=== PATIENT | female | born 1955 | race American Indian/Alaskan Native ===

== ENCOUNTER 2018-12-23 09:12 | Emergency (ER) | payer MEDICARE ==
[2018-12-23 09:22] VITALS: BP 158/84
[2018-12-23 10:03] LABS: Basophils % (Auto) 0.8 % (0.0-1.8); Eosinophils # (Auto) 0.1 K/mm3 (0.0-0.4); Eosinophils % (Auto) 1.7 % (0.0-4.3); Hematocrit 42.7 % (30.3-42.9); Lymphocytes % (Auto) 42.5 % (13.4-35.0); Mean Corpuscular HGB Conc 33 % (30-34); Mean Corpuscular Volume 76 fl (79-97); Monocytes # (Auto) 0.4 K/mm3 (0.0-0.8); Monocytes % (Auto) 8.5 % (0.0-7.3); Red Blood Count 5.62 M/mm3 (3.65-5.03); Red Cell Distribution Width 16.6 % (13.2-15.2)
[2018-12-23 10:25] LABS: BUN/Creatinine Ratio 12; Blood Urea Nitrogen 15 mg/dL (7-17); Calcium 10.3 mg/dL (8.4-10.2); Hemolysis Index 7
[2018-12-23 10:48] LABS: Bilirubin,Urine NEG (Negative); Blood,Urine NEG (Negative); Color,Urine Yellow (Yellow); Mucus,Urine FEW /HPF; Urobilinogen,Urine < 2.0 mg/dL (<2.0)
--- NOTE | 2018-12-23 10:59 | Emergency Department Report ---
- General Chief complaint: Nausea/Vomiting/Diarrhea Stated complaint: V/D FATIGUE Time Seen by Provider: 12/23/18 10:43 Source: patient Mode of arrival: Ambulatory Limitations: No Limitations - History of Present Illness Initial comments: Mrs. Archuleta is a 63 yo female who presents with fatigue for 2 weeks. Poor appetite. Has had dark stools for 3 days. Feels like it is just "old age". No chest or abdominal pain. No hx of smoking. +nausea MD Complaint: generalized weakness -: week(s) (2) Location: generalized Severity: mild Consistency: constant Improves with: none Worsens with: none Associated Symptoms: dark stools - Related Data Home Medications Medication Instructions Recorded Confirmed Last Taken Acetaminophen/Chlorpheniramine 2 each PO Q4H PRN 08/05/13 08/05/13 08/04/13 [Coricidin Hbp Cold & Flu] Aspirin [Ecotrin] 81 mg PO DAILY 08/05/13 08/05/13 08/04/13 Cholecalciferol (Vitamin D3) 1,000 unit PO DAILY 08/05/13 08/05/13 08/04/13 [Vitamin D3] Clopidogrel Bisulfate [Plavix] 75 mg PO DAILY 08/05/13 08/05/13 08/04/13 Losartan/Hydrochlorothiazide 1 each PO QDAY 08/05/13 08/05/13 08/04/13 [Hyzaar 100-12.5] Metoprolol [Lopressor] 25 mg PO BID 08/05/13 08/05/13 08/04/13 Pravastatin Sodium [Pravastatin] 20 mg PO QHS 08/05/13 08/05/13 08/04/13 Sodium Bicarbonate 650 mg PO TID 08/05/13 08/05/13 08/04/13 Triamter/Hctz 37.5-25 mg 1 tab PO QDAY 08/05/13 08/05/13 08/04/13 [Maxzide-25] amLODIPine [Norvasc] 10 mg PO DAILY 08/05/13 08/05/13 08/04/13 Previous Rx's Medication Instructions Recorded Last Taken Type ALBUTEROL Inhaler (OR & NICU) 1 puff IH Q4-6H PRN #1 inha 08/05/13 Unknown Rx [ProAir HFA Inhaler] guaiFENesin/CODEINE [Robitussin AC] 1 tsp PO Q4-6H PRN #75 ml 08/05/13 Unknown Rx Nitrofurantoin [place]/M-Cryst 100 mg PO Q12HR #10 capsule 12/19/13 Unknown Rx [Macrobid] Allergies Allergy/AdvReac Type Severity Reaction Status Date / Time lisinopril AdvReac Unknown Verified 12/23/18 09:22 ED Review of Systems ROS: Stated complaint: V/D FATIGUE Other details as noted in HPI Comment: All other systems reviewed and negative Constitutional: malaise Gastrointestinal: nausea ED Past Medical Hx - Past Medical History Previous Medical History?: Yes Hx Hypertension: Yes Additional medical history: kidney disease, high cholesterol, - Surgical History Past Surgical History?: Yes Additional Surgical History: feet - Social History Smoking Status: Never Smoker Substance Use Type: None - Medications Home Medications: Home Medications Medication Instructions Recorded Confirmed Last Taken Type ALBUTEROL Inhaler (OR & NICU) 1 puff IH Q4-6H PRN #1 inha 08/05/13 Unknown Rx [ProAir HFA Inhaler] Acetaminophen/Chlorpheniramine 2 each PO Q4H PRN 08/05/13 08/05/13 08/04/13 History [Coricidin Hbp Cold & Flu] Aspirin [Ecotrin] 81 mg PO DAILY 08/05/13 08/05/13 08/04/13 History Cholecalciferol (Vitamin D3) 1,000 unit PO DAILY 08/05/13 08/05/13 08/04/13 History [Vitamin D3] Clopidogrel Bisulfate [Plavix] 75 mg PO DAILY 08/05/13 08/05/13 08/04/13 History Losartan/Hydrochlorothiazide 1 each PO QDAY 08/05/13 08/05/13 08/04/13 History [Hyzaar 100-12.5] Metoprolol [Lopressor] 25 mg PO BID 08/05/13 08/05/13 08/04/13 History Pravastatin Sodium [Pravastatin] 20 mg PO QHS 08/05/13 08/05/13 08/04/13 History Sodium Bicarbonate 650 mg PO TID 08/05/13 08/05/13 08/04/13 History Triamter/Hctz 37.5-25 mg 1 tab PO QDAY 08/05/13 08/05/13 08/04/13 History [Maxzide-25] amLODIPine [Norvasc] 10 mg PO DAILY 08/05/13 08/05/13 08/04/13 History guaiFENesin/CODEINE [Robitussin AC] 1 tsp PO Q4-6H PRN #75 ml 08/05/13 Unknown Rx Nitrofurantoin [place]/M-Cryst 100 mg PO Q12HR #10 capsule 12/19/13 Unknown Rx [Macrobid] ED Physical Exam - General Limitations: No Limitations General appearance: alert, in no apparent distress - Head Head exam: Present: atraumatic, normocephalic - Eye Eye exam: Present: normal appearance - ENT ENT exam: Present: mucous membranes moist - Neck Neck exam: Present: normal inspection, full ROM - Respiratory Respiratory exam: Present: normal lung sounds bilaterally. Absent: respiratory distress, wheezes, rales, rhonchi - Cardiovascular Cardiovascular Exam: Present: regular rate, normal rhythm, normal heart sounds. Absent: systolic murmur, diastolic murmur, rubs, gallop - GI/Abdominal GI/Abdominal exam: Present: soft, normal bowel sounds. Absent: distended, tenderness, guarding, rebound - Extremities Exam Extremities exam: Present: normal inspection - Back Exam Back exam: Present: normal inspection - Neurological Exam Neurological exam: Present: alert, oriented X3 - Psychiatric Psychiatric exam: Present: normal affect, normal mood - Skin Skin exam: Present: warm, dry, intact, normal color. Absent: rash ED Course Vital Signs 12/23/18 09:20 Temperature 98.6 F Pulse Rate 108 H Respiratory 18 Rate Blood Pressure 158/84 O2 Sat by Pulse 99 Oximetry ED Medical Decision Making - Lab Data Result diagrams: 12/23/18 09:50 12/23/18 09:50 Laboratory Last Values WBC 4.6 K/mm3 (4.5-11.0) 12/23/18 09:50 RBC 5.62 M/mm3 (3.65-5.03) H 12/23/18 09:50 Hgb 14.0 gm/dl (10.1-14.3) 12/23/18 09:50 Hct 42.7 % (30.3-42.9) 12/23/18 09:50 MCV 76 fl (79-97) L 12/23/18 09:50 MCH 25 pg (28-32) L 12/23/18 09:50 MCHC 33 % (30-34) 12/23/18 09:50 RDW 16.6 % (13.2-15.2) H 12/23/18 09:50 Lymph % (Auto) 42.5 % (13.4-35.0) H 12/23/18 09:50 [place] % (Auto) 8.5 % (0.0-7.3) H 12/23/18 09:50 Eos % (Auto) 1.7 % (0.0-4.3) 12/23/18 09:50 Baso % (Auto) 0.8 % (0.0-1.8) 12/23/18 09:50 Lymph # 2.0 K/mm3 (1.2-5.4) 12/23/18 09:50 [place] # 0.4 K/mm3 (0.0-0.8) 12/23/18 09:50 Eos # 0.1 K/mm3 (0.0-0.4) 12/23/18 09:50 Baso # 0.0 K/mm3 (0.0-0.1) 12/23/18 09:50 Seg Neutrophils % 46.5 % (40.0-70.0) 12/23/18 09:50 Seg Neutrophils # 2.2 K/mm3 (1.8-7.7) 12/23/18 09:50 Sodium 140 mmol/L (137-145) 12/23/18 09:50 Potassium 4.6 mmol/L (3.6-5.0) 12/23/18 09:50 Chloride 106.5 mmol/L (98-107) 12/23/18 09:50 Carbon Dioxide 24 mmol/L (22-30) 12/23/18 09:50 14 mmol/L 12/23/18 09:50 BUN 15 mg/dL (7-17) 12/23/18 09:50 1.3 mg/dL (0.7-1.2) H 12/23/18 09:50 Estimated GFR 50 ml/min 12/23/18 09:50 12 % 12/23/18 09:50 Glucose 107 mg/dL (65-100) H 12/23/18 09:50 Calcium 10.3 mg/dL (8.4-10.2) H 12/23/18 09:50 < 0.010 ng/mL (0.00-0.029) 12/23/18 09:50 Yellow (Yellow) 12/23/18 Unknown Clear (Clear) 12/23/18 Unknown 5.0 (5.0-7.0) 12/23/18 Unknown Ur Specific [place] 1.020 (1.003-1.030) 12/23/18 Unknown 100 mg/dl mg/dL (Negative) 12/23/18 Unknown Neg mg/dL (Negative) 12/23/18 Unknown Neg mg/dL (Negative) 12/23/18 Unknown Neg (Negative) 12/23/18 Unknown Neg (Negative) 12/23/18 Unknown Neg (Negative) 12/23/18 Unknown < 2.0 mg/dL (<2.0) 12/23/18 Unknown Ur Leukocyte Esterase Tr (Negative) 12/23/18 Unknown 4.0 /HPF (0.0-6.0) 12/23/18 Unknown 1.0 /HPF (0.0-6.0) 12/23/18 Unknown U Epithel Cells (Auto) 2.0 /HPF (0-13.0) 12/23/18 Unknown Few /HPF 12/23/18 Unknown - Medical Decision Making Mrs. Archuleta presents with generalized weakness. No anemia. +microcytosis due iron or vitamin deficiency. recommended daily vitamin nausea DDx: PUD, IBS referred to PCP for further evaluation Critical care attestation.: If time is entered above; I have spent that time in minutes in the direct care of this critically ill patient, excluding procedure time. ED Disposition Clinical Impression: Weakness, Nausea Disposition: DC-01 TO HOME OR SELFCARE Is pt being admited?: No Does the pt Need Aspirin: No Condition: Stable Instructions: Acute Nausea and Vomiting (ED), Weakness (ED) Referrals: REMY STARK NP [Primary Care Provider] - 3-5 Days
[2018-12-23 12:03] LABS: Platelet Count 142 K/mm3 (140-440)
== END 2018-12-23 12:11 | disposition home or self-care (01) ==
LOC: ED 09:12
DX: R53.1 Weakness (principal); R11.0 Nausea; R63.0 Anorexia; K92.1 Melena; I10 Essential (primary) hypertension; E78.00 Pure hypercholesterolemia, unspecified; Z87.448 Personal history of other diseases of urinary system; Z79.899 Other long term (current) drug therapy; Z98.890 Other specified postprocedural states; Z88.8 Allergy status to other drugs, medicaments and biological substances
CPT/HCPCS: 36415; 80048; 81001; 84484; 85025

== ENCOUNTER 2019-07-20 16:09 | Emergency (ER) | payer MEDICARE ==
[2019-07-20 18:14] VITALS: BP 187/93
[2019-07-20] MEDS ORDERED: IBUPROFEN 600 MG TAB PO ONE (18:54)
[2019-07-20] MEDS ORDERED: BUTALB/ACETAMINOPHEN/CAFFEINE TAB PO ONE (18:54)
--- NOTE | 2019-07-20 19:49 | XRay Report ---
CHEST 2 VIEWS INDICATION / CLINICAL INFORMATION: Cough. Dizziness this morning. Stomach and head pain. COMPARISON: 08/05/2013. FINDINGS: SUPPORT DEVICES: None. HEART / MEDIASTINUM: The heart size is borderline with a left ventricular configuration. There is mil d aortic tortuosity without aneurysm. LUNGS / PLEURA: No significant pulmonary or pleural abnormality. No pneumothorax. ADDITIONAL FINDINGS: No significant additional findings. IMPRESSION: No acute abnormality or significant change. Signer Name: Pedro Luis Cox MD Signed: 07/20/2019 7:44 PM Workstation Name: [id number]
[2019-07-20 19:50] LABS: Bilirubin,Urine NEG (Negative); Blood,Urine NEG (Negative); Color,Urine Straw (Yellow); Urobilinogen,Urine < 2.0 mg/dL (<2.0); WBC,Urine < 1.0 /HPF (0.0-6.0)
[2019-07-20 19:56] LABS: Albumin 4.1 g/dL (3.9-5); Calcium 9.8 mg/dL (8.4-10.2)
[2019-07-20 20:16] LABS: Basophils # (Auto) 0.1 K/mm3 (0.0-0.1); Basophils % (Auto) 0.9 % (0.0-1.8); Eosinophils # (Auto) 0.1 K/mm3 (0.0-0.4); Eosinophils % (Auto) 1.1 % (0.0-4.3); Hematocrit 42.5 % (30.3-42.9); Lymphocytes # (Auto) 2.8 K/mm3 (1.2-5.4); Lymphocytes % (Auto) 41.7 % (13.4-35.0); Mean Corpuscular HGB Conc 33 % (30-34); Mean Corpuscular Volume 74 fl (79-97); Monocytes # (Auto) 0.5 K/mm3 (0.0-0.8); Monocytes % (Auto) 7.8 % (0.0-7.3); Red Blood Count 5.74 M/mm3 (3.65-5.03); Red Cell Distribution Width 16.4 % (13.2-15.2)
[2019-07-20 21:04] LABS: Platelet Count 155 K/mm3 (140-440)
--- NOTE | 2019-07-20 22:28 | Emergency Department Report ---
ED General Adult HPI - General Chief complaint: Headache Stated complaint: HEAD, STOMACH Source: patient Mode of arrival: Ambulatory Limitations: No Limitations - History of Present Illness Initial comments: Patient is a 64 year-old female who presented to the ED with Dev[place] of acute onset persistent nasal and sinus congestion, frontal sinus pressure and headache for the last 2 days worse in the last 12 hours. Patient states that the headache resolved prior to arrival in the ED prior to that it was worse. Patient denies fever, chills, nausea, vomiting, chest pain, shortness of breath, dizziness, syncope, palpitation, sore throat, traumatic injury or fall. MD Complaint: Diffuse body aches and pain; headache, dry cough -: Sudden, days(s) (2) Location: head, chest Radiation: non-radiation Severity scale (0 -10): 0 Quality: dull Consistency: intermittent Improves with: none Worsens with: none Associated Symptoms: denies other symptoms, cough, headaches, loss of appetite. denies: confusion, chest pain, diaphoresis, fever/chills, malaise, nausea/vomiting, rash, seizure, shortness of breath, syncope, weakness, other Treatments Prior to Arrival: none - Related Data Home Medications Medication Instructions Recorded Confirmed Last Taken Acetaminophen/Chlorpheniramine 2 each PO Q4H PRN 08/05/13 08/05/13 08/04/13 [Coricidin Hbp Cold & Flu] Aspirin [Ecotrin] 81 mg PO DAILY 08/05/13 08/05/13 08/04/13 Cholecalciferol (Vitamin D3) 1,000 unit PO DAILY 08/05/13 08/05/13 08/04/13 [Vitamin D3] Clopidogrel Bisulfate [Plavix] 75 mg PO DAILY 08/05/13 08/05/13 08/04/13 Losartan/Hydrochlorothiazide 1 each PO QDAY 08/05/13 08/05/13 08/04/13 [Hyzaar 100-12.5] Metoprolol [Lopressor] 25 mg PO BID 08/05/13 08/05/13 08/04/13 Pravastatin Sodium [Pravastatin] 20 mg PO QHS 08/05/13 08/05/13 08/04/13 Sodium Bicarbonate 650 mg PO TID 08/05/13 08/05/13 08/04/13 Triamter/Hctz 37.5-25 mg 1 tab PO QDAY 08/05/13 08/05/13 08/04/13 [Maxzide-25] amLODIPine [Norvasc] 10 mg PO DAILY 08/05/13 08/05/13 08/04/13 Previous Rx's Medication Instructions Recorded Last Taken Type Albuterol INH(or & Nicu Only) 1 puff IH Q4-6H PRN #1 inha 08/05/13 Unknown Rx [ProAir HFA Inhaler] guaiFENesin/CODEINE [Robitussin AC] 1 tsp PO Q4-6H PRN #75 ml 08/05/13 Unknown Rx Nitrofurantoin [place]/M-Cryst 100 mg PO Q12HR #10 capsule 12/19/13 Unknown Rx [Macrobid] Azithromycin [Zithromax TAB] 250 mg PO QDAY #6 tablet 07/20/19 Unknown Rx Butalb/Acetamin/Caff 50-325-40 1 - 2 tab PO Q6HR PRN #12 tab 07/20/19 Unknown Rx [Fioricet 50-325-40] Cetirizine HCl [Zyrtec 10mg tab] 10 mg PO DAILY #20 tablet 07/20/19 Unknown Rx Allergies Allergy/AdvReac Type Severity Reaction Status Date / Time lisinopril AdvReac Unknown Verified 07/20/19 16:11 ED Review of Systems ROS: Stated complaint: HEAD, STOMACH Other details as noted in HPI Constitutional: denies: chills, fever Eyes: denies: eye pain, eye discharge, vision change ENT: congestion. denies: ear pain, throat pain Respiratory: cough. denies: shortness of breath, wheezing Cardiovascular: denies: chest pain, palpitations Endocrine: no symptoms reported Gastrointestinal: denies: abdominal pain, nausea, diarrhea Genitourinary: denies: urgency, dysuria, discharge Musculoskeletal: denies: back pain, joint swelling, arthralgia Skin: denies: rash, lesions Neurological: headache (frontal headache). denies: weakness, paresthesias Psychiatric: denies: anxiety, depression Hematological/Lymphatic: denies: easy bleeding, easy bruising ED Past Medical Hx - Past Medical History Hx Hypertension: Yes Additional medical history: kidney disease, high cholesterol, - Surgical History Additional Surgical History: feet - Social History Smoking Status: Former Smoker Substance Use Type: None - Medications Home Medications: Home Medications Medication Instructions Recorded Confirmed Last Taken Type Acetaminophen/Chlorpheniramine 2 each PO Q4H PRN 08/05/13 08/05/13 08/04/13 History [Coricidin Hbp Cold & Flu] Albuterol INH(or & Nicu Only) 1 puff IH Q4-6H PRN #1 inha 08/05/13 Unknown Rx [ProAir HFA Inhaler] Aspirin [Ecotrin] 81 mg PO DAILY 08/05/13 08/05/13 08/04/13 History Cholecalciferol (Vitamin D3) 1,000 unit PO DAILY 08/05/13 08/05/13 08/04/13 History [Vitamin D3] Clopidogrel Bisulfate [Plavix] 75 mg PO DAILY 08/05/13 08/05/13 08/04/13 History Losartan/Hydrochlorothiazide 1 each PO QDAY 08/05/13 08/05/13 08/04/13 History [Hyzaar 100-12.5] Metoprolol [Lopressor] 25 mg PO BID 08/05/13 08/05/13 08/04/13 History Pravastatin Sodium [Pravastatin] 20 mg PO QHS 08/05/13 08/05/13 08/04/13 History Sodium Bicarbonate 650 mg PO TID 08/05/13 08/05/13 08/04/13 History Triamter/Hctz 37.5-25 mg 1 tab PO QDAY 08/05/13 08/05/13 08/04/13 History [Maxzide-25] amLODIPine [Norvasc] 10 mg PO DAILY 08/05/13 08/05/13 08/04/13 History guaiFENesin/CODEINE [Robitussin AC] 1 tsp PO Q4-6H PRN #75 ml 08/05/13 Unknown Rx Nitrofurantoin [place]/M-Cryst 100 mg PO Q12HR #10 capsule 12/19/13 Unknown Rx [Macrobid] Azithromycin [Zithromax TAB] 250 mg PO QDAY #6 tablet 07/20/19 Unknown Rx Butalb/Acetamin/Caff 50-325-40 1 - 2 tab PO Q6HR PRN #12 tab 07/20/19 Unknown Rx [Fioricet 50-325-40] Cetirizine HCl [Zyrtec 10mg tab] 10 mg PO DAILY #20 tablet 07/20/19 Unknown Rx ED Physical Exam - General Limitations: No Limitations General appearance: alert, in no apparent distress - Head Head exam: Present: atraumatic, normocephalic, normal inspection - Eye Eye exam: Present: normal appearance, PERRL, EOMI Pupils: Present: normal accommodation - ENT ENT exam: Present: normal orophraynx, mucous membranes moist, TM's normal bilaterally, normal external ear exam, other (grossly congested nasal passages, frontal sinus tenderness to palpation) - Neck Neck exam: Present: normal inspection, full ROM. Absent: tenderness - Respiratory Respiratory exam: Present: normal lung sounds bilaterally. Absent: respiratory distress, wheezes, rales, chest wall tenderness, accessory muscle use, decreased breath sounds, prolonged expiratory - Cardiovascular Cardiovascular Exam: Present: regular rate, normal rhythm, normal heart sounds. Absent: systolic murmur, diastolic murmur, rubs, gallop - GI/Abdominal GI/Abdominal exam: Present: soft, normal bowel sounds. Absent: tenderness, rebound, hyperactive bowel sounds, hypoactive bowel sounds - Extremities Exam Extremities exam: Present: normal inspection, full ROM, normal capillary refill - Back Exam Back exam: Present: normal inspection, full ROM. Absent: tenderness, muscle spasm, paraspinal tenderness - Neurological Exam Neurological exam: Present: alert, oriented X3, CN II-XII intact, normal gait, reflexes normal - Psychiatric Psychiatric exam: Present: normal affect, normal mood - Skin Skin exam: Present: warm, dry, intact, normal color. Absent: rash ED Course Vital Signs 07/20/19 07/20/19 16:20 18:47 Temperature 98.0 F Pulse Rate 87 Respiratory 18 18 Rate Blood Pressure 187/93 Blood Pressure 132/76 [Right] O2 Sat by Pulse 96 Oximetry ED Medical Decision Making - Lab Data Result diagrams: 07/20/19 19:58 07/20/19 16:22 - Radiology Data Radiology results: report reviewed, image reviewed - Medical Decision Making This is a 64-year-old female who presented to the ED with frontal sinus pressure and headache, nasal and sinus congestion, dry cough for 2 days. In the ED, patient is alert and oriented 3 and is not in distress with normal vital signs. Lab test results were all reviewed and are nonactionable including urinalysis. Chest x-ray shows no acute cardiopulmonary abnormalities or pneumonitis. Patient did not have any headache while in the ED and therefore was not treated for any pain or given any medications. Patient was discharged home on medications and advised to follow-up with her primary care physician in 5-7 days for reevaluation or return to the ED immediately if symptoms get worse. - Differential Diagnosis sinusitis; pneumonia; URI; Bronchitis Critical care attestation.: If time is entered above; I have spent that time in minutes in the direct care of this critically ill patient, excluding procedure time. ED Disposition Clinical Impression: Acute upper respiratory infection, Sinus headache, Flu-like symptoms Acute frontal sinusitis Qualifiers: Recurrence: non-recurrent Qualified Code(s): J01.10 - Acute frontal sinusitis, unspecified Disposition: TO HOME OR SELFCARE Is pt being admited?: No Does the pt Need Aspirin: No Condition: Stable Instructions: Sinusitis (ED), Acute Headache (ED) Additional Instructions: Take medication with food, drink plenty of fluids and follow up with your primary care physician in 5-7 days for reevaluation. Return to the ED immediately if symptoms get worse. Prescriptions: Butalb/Acetamin/Caff 50-325-40 [Fioricet 50-325-40] 1 - 2 tab PO Q6HR PRN #12 tab PRN Reason: Headache Azithromycin [Zithromax TAB] 250 mg PO QDAY #6 tablet Cetirizine HCl [Zyrtec 10mg tab] 10 mg PO DAILY #20 tablet Referrals: GREGORIO DURAN MD [Staff Physician] - 3-5 Days Time of Disposition: 22:27 Print Language: OCCITAN
== END 2019-07-20 22:35 | disposition home or self-care (01) ==
LOC: ED 16:09
DX: J01.10 Acute frontal sinusitis, unspecified (principal); I10 Essential (primary) hypertension; Z87.891 Personal history of nicotine dependence; Z79.899 Other long term (current) drug therapy; Z88.8 Allergy status to other drugs, medicaments and biological substances
CPT/HCPCS: 36415; 71046; 80053; 81001; 85025; 87400

== ENCOUNTER 2020-07-14 16:07 | Emergency (ER) | payer MEDICARE ==
[2020-07-14 16:18] VITALS: BP 181/92
--- NOTE | 2020-07-14 16:23 | Emergency Department Report ---
ED Neck Pain/Injury HPI - General Chief Complaint: Neck Pain/Injury Stated Complaint: NECK PAIN Mode of arrival: Ambulatory Limitations: No Limitations - History of Present Illness Initial Comments: 65-year-old -Congolese male female presents to the emergency room for a 2- day history of intermittent neck pain that is sharp. Patient denies any pain at this time. Patient reports that her daughter is at home tested positive for Covid. Patient states her last Covid test was Wednesday of last week and it was negative. Patient was noted to have a low-grade fever 100.2. Mild tachycardic at 101. Patient is taking nothing for her symptoms. Patient has a past medical history of hypertension and reports she is on 5 different blood pressure medications. Patient states that she is compliant with her medicines. Patient denies any injuries. MD Complaint: neck pain Onset/Timin -: days(s) Severity scale (0 -10): 0 Associated Symptoms: none Treatments Prior to Arrival: none - Related Data Home Medications Medication Instructions Recorded Confirmed Last Taken Acetaminophen/Chlorpheniramine 2 each PO Q4H PRN 08/05/13 08/05/13 08/04/13 [Coricidin Hbp Cold & Flu] Aspirin [Ecotrin] 81 mg PO DAILY 08/05/13 08/05/13 08/04/13 Cholecalciferol (Vitamin D3) 1,000 unit PO DAILY 08/05/13 08/05/13 08/04/13 [Vitamin D3] Clopidogrel Bisulfate [Plavix] 75 mg PO DAILY 08/05/13 08/05/13 08/04/13 Losartan/Hydrochlorothiazide 1 each PO QDAY 08/05/13 08/05/13 08/04/13 [Hyzaar 100-12.5] Metoprolol [Lopressor] 25 mg PO BID 08/05/13 08/05/13 08/04/13 Pravastatin Sodium [Pravastatin] 20 mg PO QHS 08/05/13 08/05/13 08/04/13 Sodium Bicarbonate 650 mg PO TID 08/05/13 08/05/13 08/04/13 Triamter/Hctz 37.5-25 mg 1 tab PO QDAY 08/05/13 08/05/13 08/04/13 [Maxzide-25] amLODIPine [Norvasc] 10 mg PO DAILY 08/05/13 08/05/13 08/04/13 Previous Rx's Medication Instructions Recorded Last Taken Type Albuterol Mdi (or & Nicu Only) 1 puff IH Q4-6H PRN #1 inha 08/05/13 Unknown Rx [ProAir HFA Inhaler] guaiFENesin/CODEINE [Robitussin AC] 1 tsp PO Q4-6H PRN #75 ml 08/05/13 Unknown Rx Nitrofurantoin [place]/M-Cryst 100 mg PO Q12HR #10 capsule 12/19/13 Unknown Rx [Macrobid] Azithromycin [Zithromax TAB] 250 mg PO QDAY #6 tablet 07/20/19 Unknown Rx Butalb/Acetamin/Caff 50-325-40 1 - 2 tab PO Q6HR PRN #12 tab 07/20/19 Unknown Rx [Fioricet 50-325-40] Cetirizine HCl [Zyrtec 10mg tab] 10 mg PO DAILY #20 tablet 07/20/19 Unknown Rx Allergies Allergy/AdvReac Type Severity Reaction Status Date / Time lisinopril AdvReac Unknown Verified 07/20/19 16:11 ED Review of Systems ROS: Stated complaint: NECK PAIN Other details as noted in HPI Comment: All other systems reviewed and negative ED Past Medical Hx - Past Medical History Previous Medical History?: Yes Hx Hypertension: Yes Additional medical history: kidney disease, high cholesterol, - Surgical History Past Surgical History?: Yes Additional Surgical History: feet - Social History Smoking Status: Never Smoker Substance Use Type: None - Medications Home Medications: Home Medications Medication Instructions Recorded Confirmed Last Taken Type Acetaminophen/Chlorpheniramine 2 each PO Q4H PRN 08/05/13 08/05/13 08/04/13 History [Coricidin Hbp Cold & Flu] Albuterol Mdi (or & Nicu Only) 1 puff IH Q4-6H PRN #1 inha 08/05/13 Unknown Rx [ProAir HFA Inhaler] Aspirin [Ecotrin] 81 mg PO DAILY 08/05/13 08/05/13 08/04/13 History Cholecalciferol (Vitamin D3) 1,000 unit PO DAILY 08/05/13 08/05/13 08/04/13 History [Vitamin D3] Clopidogrel Bisulfate [Plavix] 75 mg PO DAILY 08/05/13 08/05/1308/04/14 History Losartan/Hydrochlorothiazide 1 each PO QDAY 08/05/13 08/05/13 08/04/13 History [Hyzaar 100-12.5] Metoprolol [Lopressor] 25 mg PO BID 08/05/13 08/05/13 08/04/13 History Pravastatin Sodium [Pravastatin] 20 mg PO QHS 08/05/13 08/05/13 08/04/13 History Sodium Bicarbonate 650 mg PO TID 08/05/13 08/05/13 08/04/13 History Triamter/Hctz 37.5-25 mg 1 tab PO QDAY 08/05/13 08/05/13 08/04/13 History [Maxzide-25] amLODIPine [Norvasc] 10 mg PO DAILY 08/05/13 08/05/13 08/04/13 History guaiFENesin/CODEINE [Robitussin AC] 1 tsp PO Q4-6H PRN #75 ml 08/05/13 Unknown Rx Nitrofurantoin [place]/M-Cryst 100 mg PO Q12HR #10 capsule 12/19/13 Unknown Rx [Macrobid] Azithromycin [Zithromax TAB] 250 mg PO QDAY #6 tablet 07/20/19 Unknown Rx Butalb/Acetamin/Caff 50-325-40 1 - 2 tab PO Q6HR PRN #12 tab 07/20/19 Unknown Rx [Fioricet 50-325-40] Cetirizine HCl [Zyrtec 10mg tab] 10 mg PO DAILY #20 tablet 07/20/19 Unknown Rx ED Physical Exam - General Limitations: No Limitations General appearance: alert, in no apparent distress - Head Head exam: Present: atraumatic, normocephalic - Eye Eye exam: Present: normal appearance - ENT ENT exam: Present: mucous membranes moist - Neck Neck exam: Present: normal inspection - Respiratory Respiratory exam: Present: normal lung sounds bilaterally. Absent: respiratory distress - Cardiovascular Cardiovascular Exam: Present: regular rate, normal rhythm. Absent: systolic murmur, diastolic murmur, rubs, gallop - GI/Abdominal GI/Abdominal exam: Present: soft, normal bowel sounds - Extremities Exam Extremities exam: Present: normal inspection - Back Exam Back exam: Present: normal inspection - Neurological Exam Neurological exam: Present: alert, oriented X3 - Psychiatric Psychiatric exam: Present: normal affect, normal mood - Skin Skin exam: Present: warm, dry, intact, normal color. Absent: rash ED Course Vital Signs 07/14/20 16:15 Temperature 100.2 F H Pulse Rate 107 H Respiratory 20 Rate Blood Pressure 181/92 O2 Sat by Pulse 98 Oximetry ED Medical Decision Making - Medical Decision Making 65-year-old -Congolese male female presents to the emergency room for a 2- day history of intermittent neck pain that is sharp. Patient denies any pain at this time. Patient reports that her daughter is at home tested positive for Covid. Patient states her last Covid test was Wednesday of last week and it was negative. Patient was noted to have a low-grade fever 100.2. Mild tachycardic at 101. Patient is taking nothing for her symptoms. Patient has a past medical history of hypertension and reports she is on 5 different blood pressure medications. Patient states that she is compliant with her medicines. Patient denies any injuries. Discussed with patient she needs to follow-up with your primary care provider. Take Tylenol or ibuprofen for fever and pain. She needs to be retested for Covid. Staying quarantine until she has been tested. Increase her fluid intake. Critical care attestation.: If time is entered above; I have spent that time in minutes in the direct care of this critically ill patient, excluding procedure time. ED Disposition Clinical Impression: Viral syndrome, Suspected 2019 novel coronavirus infection Disposition: DC-01 TO HOME OR SELFCARE Is pt being admited?: No Does the pt Need Aspirin: No Condition: Stable Instructions: Viral Respiratory Infection, [id number] Additional Instructions: Your symptoms appear most consistent with a nonspecific viral syndrome. However, given this current pandemic, COVID-19 is in the differential of possibilities. Despite your previous negative COVID-19 test, I do recommend repeat outpatient Covid 19 testing. In the meantime, isolate/quarantine yourself and stay away from anyone who is elderly, immunocompromised or chronically ill. You can use ibuprofen every 6-8 hours and Tylenol every 4-8 hours, using the dosing on the back of the bottle, as needed for any fever or body aches. Return to the emergency department with any worsening of your symptoms, development of chest pain or shortness of breath, or with any acute distress. Recommend Tylenol ibuprofen for pain and fever. Follow-up with your primary care provider. Very important to get retested for Covid. Please quarantine away away from your daughter. Referrals: KASEY HUSTON NP-C [Referring] - 3-5 Days
== END 2020-07-14 16:26 | disposition home or self-care (01) ==
LOC: ED 16:07
DX: B34.9 Viral infection, unspecified (principal); I10 Essential (primary) hypertension; Z20.828 Contact with and (suspected) exposure to other viral communicable diseases; Z79.899 Other long term (current) drug therapy
CPT/HCPCS: 99282

== ENCOUNTER 2021-04-08 15:02 | Outpatient (CLI) | payer MEDICARE ==
--- NOTE | 2021-04-08 16:31 | XRay Report ---
XR chest routine 2V INDICATION / CLINICAL INFORMATION: SHORTNESS OF BREATH. COMPARISON: 07/20/2019 FINDINGS: SUPPORT DEVICES: Left-sided cardiac pacemaker with leads projecting in the region of the right atrium and right ventricle. HEART /PULMONARY VASCULATURE: Cardiac silhouette is mildly enlarged. No significant pulmonary vascula ture congestion. LUNGS / PLEURA: No acute airspace consolidation or effusion. No pneumothorax. ADDITIONAL FINDINGS: No significant additional findings. IMPRESSION: 1. No acute findings. Signer Name: Marcos Burgos MD Signed: 04/08/2021 4:27 PM Workstation Name: [id number]
--- NOTE | 2021-04-08 16:37 | Nuclear Medicine Report ---
NUCLEAR MEDICINE PERFUSION LUNG SCAN INDICATION / CLINICAL INFORMATION: Dyspnea on exertion, history of PE in October 2020. Patient reports running out of prescribed blood thinn ers. TECHNIQUE: 5.1 mCi of Tc-99m MAA were given by IV. COMPARISON: 2 views of the chest performed today. FINDINGS: PERFUSION: No significant perfusion defects. ADDITIONAL FINDINGS: None. IMPRESSION: 1. Low probability for pulmonary embolism. Signer Name: Jimmy Alonzo MD Signed: 04/08/2021 4:32 PM Workstation Name: [id number]
== END 2021-04-08 15:03 | disposition home or self-care (01) ==
LOC: NM 15:02
PROVIDERS: ATTEND Internal Medicine Cardiovascular Disease
DX: I51.7 Cardiomegaly (principal); R06.02 Shortness of breath; Z86.711 Personal history of pulmonary embolism
CPT/HCPCS: 71046; 78580; A9540

== ENCOUNTER 2021-08-07 11:36 | Emergency (ER) | payer MEDICARE ==
--- NOTE | 2021-08-07 13:00 | Emergency Department Report ---
ED Female HPI - General Chief complaint: Urogenital-Female Stated complaint: URINARY TRACT INFECTION Time Seen by Provider: 08/07/21 12:36 Source: patient Mode of arrival: Ambulatory Limitations: No Limitations - History of Present Illness Initial comments: 66-year-old -Armenian female presents to the emergency room complaining of dysuria urinary urgency urinary frequency hematuria pelvic pain and pressure and urinary retention that started today. She denies any fever no chills no nausea no vomiting. She does report a history of hypertension and stage IV kidney disease MD Complaint: dysuria - Related Data Home Medications Medication Instructions Recorded Confirmed Last Taken Acetaminophen/Chlorpheniramine 2 each PO Q4H PRN 08/05/13 08/05/13 08/04/13 [Coricidin Hbp Cold & Flu] Aspirin [Ecotrin] 81 mg PO DAILY 08/05/13 08/05/13 08/04/13 Cholecalciferol (Vitamin D3) 1,000 unit PO DAILY 08/05/13 08/05/13 08/04/13 [Vitamin D3] Clopidogrel Bisulfate [Plavix] 75 mg PO DAILY 08/05/13 08/05/13 08/04/13 Losartan/Hydrochlorothiazide 1 each PO QDAY 08/05/13 08/05/13 08/04/13 [Hyzaar 100-12.5] Metoprolol [Lopressor] 25 mg PO BID 08/05/13 08/05/13 08/04/13 Pravastatin Sodium [Pravastatin] 20 mg PO QHS 08/05/13 08/05/13 08/04/13 Sodium Bicarbonate 650 mg PO TID 08/05/13 08/05/13 08/04/13 Triamter/Hctz 37.5-25 mg 1 tab PO QDAY 08/05/13 08/05/13 08/04/13 [Maxzide-25] amLODIPine [Norvasc] 10 mg PO DAILY 08/05/13 08/05/13 08/04/13 Previous Rx's Medication Instructions Recorded Last Taken Type Albuterol Mdi (or & Nicu Only) 1 puff IH Q4-6H PRN #1 inha 08/05/13 Unknown Rx [ProAir HFA Inhaler] guaiFENesin/CODEINE [Robitussin AC] 1 tsp PO Q4-6H PRN #75 ml 08/05/13 Unknown Rx Nitrofurantoin [place]/M-Cryst 100 mg PO Q12HR #10 capsule 12/19/13 Unknown Rx [Macrobid] Azithromycin [Zithromax TAB] 250 mg PO QDAY #6 tablet 07/20/19 Unknown Rx Butalb/Acetamin/Caff 50-325-40 1 - 2 tab PO Q6HR PRN #12 tab 07/20/19 Unknown Rx [Fioricet 50-325-40] Cetirizine HCl [Zyrtec 10mg tab] 10 mg PO DAILY #20 tablet 07/20/19 Unknown Rx Nitrofurantoin [place]/M-Cryst 100 mg PO Q12HR 7 Days #14 capsule 08/07/21 Unknown Rx [Macrobid CAP] Phenazopyridine [Pyridium] 100 mg PO TID #9 tab 08/07/21 Unknown Rx Allergies Allergy/AdvReac Type Severity Reaction Status Date / Time lisinopril AdvReac Unknown Verified 07/20/19 16:11 ED Review of Systems ROS: Stated complaint: URINARY TRACT INFECTION Other details as noted in HPI Comment: All other systems reviewed and negative ED Past Medical Hx - Past Medical History Hx Hypertension: Yes Additional medical history: kidney disease, high cholesterol, - Surgical History Additional Surgical History: feet - Social History Smoking Status: Never Smoker Substance Use Type: None - Medications Home Medications: Home Medications Medication Instructions Recorded Confirmed Last Taken Type Acetaminophen/Chlorpheniramine 2 each PO Q4H PRN 08/05/13 08/05/13 08/04/13 History [Coricidin Hbp Cold & Flu] Albuterol Mdi (or & Nicu Only) 1 puff IH Q4-6H PRN #1 inha 08/05/13 Unknown Rx [ProAir HFA Inhaler] Aspirin [Ecotrin] 81 mg PO DAILY 08/05/13 08/05/13 08/04/13 History Cholecalciferol (Vitamin D3) 1,000 unit PO DAILY 08/05/13 08/05/13 08/04/13 History [Vitamin D3] Clopidogrel Bisulfate [Plavix] 75 mg PO DAILY 08/05/13 08/05/13 08/04/13 History Losartan/Hydrochlorothiazide 1 each PO QDAY 08/05/13 08/05/13 08/04/13 History [Hyzaar 100-12.5] Metoprolol [Lopressor] 25 mg PO BID 08/05/13 08/05/13 08/04/13 History Pravastatin Sodium [Pravastatin] 20 mg PO QHS 08/05/13 08/05/13 08/04/13 History Sodium Bicarbonate 650 mg PO TID 08/05/13 08/05/13 08/04/13 History Triamter/Hctz 37.5-25 mg 1 tab PO QDAY 08/05/13 08/05/13 08/04/13 History [Maxzide-25] amLODIPine [Norvasc] 10 mg PO DAILY 08/05/13 08/05/13 08/04/13 History guaiFENesin/CODEINE [Robitussin AC] 1 tsp PO Q4-6H PRN #75 ml 08/05/13 Unknown Rx Nitrofurantoin [place]/M-Cryst 100 mg PO Q12HR #10 capsule 12/19/13 Unknown Rx [Macrobid] Azithromycin [Zithromax TAB] 250 mg PO QDAY #6 tablet 07/20/19 Unknown Rx Butalb/Acetamin/Caff 50-325-40 1 - 2 tab PO Q6HR PRN #12 tab 07/20/19 Unknown Rx [Fioricet 50-325-40] Cetirizine HCl [Zyrtec 10mg tab] 10 mg PO DAILY #20 tablet 07/20/19 Unknown Rx Nitrofurantoin [place]/M-Cryst 100 mg PO Q12HR 7 Days #14 capsule 08/07/21 Unknown Rx [Macrobid CAP] Phenazopyridine [Pyridium] 100 mg PO TID #9 tab 08/07/21 Unknown Rx ED Physical Exam - General Limitations: No Limitations General appearance: alert, in no apparent distress - Head Head exam: Present: atraumatic, normocephalic - Eye Eye exam: Present: normal appearance - ENT ENT exam: Present: mucous membranes moist - Neck Neck exam: Present: normal inspection - Respiratory Respiratory exam: Present: normal lung sounds bilaterally. Absent: respiratory distress - Cardiovascular Cardiovascular Exam: Present: regular rate, normal rhythm. Absent: systolic murmur, diastolic murmur, rubs, gallop - GI/Abdominal GI/Abdominal exam: Present: soft, normal bowel sounds - Extremities Exam Extremities exam: Present: normal inspection - Back Exam Back exam: Present: normal inspection - Neurological Exam Neurological exam: Present: alert, oriented X3 - Psychiatric Psychiatric exam: Present: normal affect, normal mood - Skin Skin exam: Present: warm, dry, intact, normal color. Absent: rash ED Course Vital Signs 08/07/21 12:20 Temperature 98.9 F Pulse Rate 83 Respiratory 18 Rate Blood Pressure 142/85 [Right] O2 Sat by Pulse 99 Oximetry ED Medical Decision Making - Medical Decision Making 66-year-old -Armenian female presents to the emergency room complaining of dysuria urinary urgency urinary frequency hematuria pelvic pain and pressure and urinary retention that started today. She denies any fever no chills no nausea no vomiting. She does report a history of hypertension and stage IV kidney disease Patient has a urinary tract infection we will treat her with Macrobid 100 mg p.o. twice daily for 10 days give her 3 days of Pyridium to take 3 times a day Critical care attestation.: If time is entered above; I have spent that time in minutes in the direct care of this critically ill patient, excluding procedure time. ED Disposition Clinical Impression: UTI (urinary tract infection) Disposition: HOME / SELF CARE / HOMELESS Is pt being admited?: No Does the pt Need Aspirin: No Condition: Stable Instructions: Urinary Tract Infection, Adult, [id number] Additional Instructions: Complete your antibiotics as prescribed take your Pyridium as needed for urinary spasms. Tylenol for pain. Increase your water intake advance your diet as tolerated follow-up with your primary care provider Prescriptions: Nitrofurantoin [place]/M-Cryst [Macrobid CAP] 100 mg PO Q12HR 7 Days #14 capsule Phenazopyridine [Pyridium] 100 mg PO TID #9 tab Referrals: Your, primary care provider [Other] - 3-5 Days Time of Disposition: 14:30
[2021-08-07 14:11] LABS: Bilirubin,Urine NEG (Negative); Blood,Urine LG (Negative); Color,Urine Yellow (Yellow); Mucus,Urine FEW /HPF; Urobilinogen,Urine < 2.0 mg/dL (<2.0)
[2021-08-07 14:12] LABS: RBC,Urine > 182.0 /HPF (0.0-6.0); WBC,Urine > 182.0 /HPF (0.0-6.0)
[2021-08-07 14:47] VITALS: BP 140/90
== END 2021-08-07 19:17 | disposition home or self-care (01) ==
LOC: ED 11:36
DX: N39.0 Urinary tract infection, site not specified (principal); Z88.8 Allergy status to other drugs, medicaments and biological substances; I10 Essential (primary) hypertension
CPT/HCPCS: 81001; 87076; 87086; 87186; 99283